=== PATIENT | female | born 1960 | race Caucasian/White ===

== ENCOUNTER 2016-12-16 07:15 | Day surgery (SDC) | payer BC ==
[2016-12-16] MEDS ORDERED: Dextrose 5%-Lactated Ringers 1,000 ML IV SCH (07:45)
[2016-12-16] MEDS ORDERED: ceFAZolin 2 GM in Sodium Chloride 0.9% 50 ML IV ONE (08:15)
[2016-12-16] MEDS ORDERED: ceFAZolin 2 GM in Sodium Chloride 0.9% 100 ML IV ONE (08:15)
[2016-12-16] MEDS ORDERED: Bupivacaine 0.5%/EPINEPHrine 1:200,000 50 ML MDV ONE (10:30)
[2016-12-16] MEDS ORDERED: Rocuronium 50 MG/5 ML Vial ONE (10:49)
[2016-12-16] MEDS ORDERED: Ondansetron 4 MG/2 ML SDV ONE (10:49)
[2016-12-16] MEDS ORDERED: Neostigmine Methylsulfate 1 MG/ML 5 ML Syringe ONE (10:49)
[2016-12-16] MEDS ORDERED: Succinylcholine/Normal Saline 200 MG/10 ML Syringe ONE (10:49)
[2016-12-16] MEDS ORDERED: Propofol 200 MG/20 ML SDV ONE (10:49)
[2016-12-16] MEDS ORDERED: fentaNYL 250 MCG/5 ML SDV ONE ×2 (10:49→12:41)
[2016-12-16] MEDS ORDERED: Dexamethasone 4 MG/ML SDV ONE (10:49)
[2016-12-16] MEDS ORDERED: Lidocaine 1% 2 ML ONE (10:50)
[2016-12-16] MEDS ORDERED: Midazolam 1 MG/ML 2 ML SDV ONE (12:02)
[2016-12-16 14:48] VITALS: BP 131/61
--- NOTE | 2016-12-21 13:32 | OR ---
DATE OF PROCEDURE: 12/16/2016 PREOPERATIVE DIAGNOSIS: Metastatic papillary thyroid carcinoma to right cervical lymph node. POSTOPERATIVE DIAGNOSIS: Metastatic papillary thyroid carcinoma to right cervical lymph node. OPERATIVE PROCEDURE: Limited right cervical lymph node dissection (14102). ANESTHESIA: General. FILER AND SANDER: ANNI Barton student. INDICATION FOR PROCEDURE: This is a 56-year-old female now 7 to 8 years status post a total thyroidectomy for what at that time was a 4-cm papillary carcinoma. The patient received adjuvant I-131 treatment postoperatively. Recently, she was noted clinically to have a slightly enlarged node in the central area of the right neck and a fine-needle aspiration of that was consistent with metastatic papillary carcinoma. A PET scan was obtained, which showed that to be the only focus throughout the body and that clinically is consistent with the neck, otherwise, being free of any disease as well. The situation was discussed with radiation oncologist, Nile Hood MD, in [place] who had treated the patient with I-131 previously. The option of proceeding with a full radical neck dissection versus a limited excision of the single enlarged node, perhaps one or two nodes that might be nearby in that area followed by I-131 treatment for what might otherwise be some minimal microscopic disease were discussed, this was also reviewed with the patient. At this point, the plan will be to proceed with a very limited lymph node dissection, removing the area of concern and the adjacent adherent nodes. This would allow a subsequent full radical neck dissection should that become necessary subsequently and we plan to proceed with I-131 treatment post surgery. Potential risks of the procedure including bleeding, infection, injury to the nerves in the area, possible recurrence or persistence of the tumor postoperatively along with remote possibility of cardiopulmonary, septic, or hemorrhagic complications leading to were discussed, and the patient wishes to proceed. DETAILS OF PROCEDURE: The patient was taken to the operating room. After general endotracheal anesthesia was induced, the neck was turned slightly toward the left, and the right upper chest and neck areas were prepped and draped. A linear incision over the palpable node that had been previously aspirated for cytology was made and carried down through the skin and subcutaneous tissue, platysmal layers and subsequent fascial layers of neck came onto that node. There was noted to have a small hemorrhage with the recent fine needle aspiration. This was reduced using fine-needle aspiration. That node along with two more or less adherent nodes were excised with care taken to avoid injury to the nerves that were running into that area. The specimen was then delivered from the field. Frozen section confirmed an area of metastatic papillary carcinoma. The node removed was consistent with what was being seen radiologically preoperatively as well. Palpation revealed no additional areas of lymphadenopathy or suspicious findings. The incision was then closed with layers of 3-0 and 4-0 Vicryl stitch deep and Steri-Strips applied after the skin was closed with a 5-0 Vicryl subcuticular stitch. The patient was taken to the recovery room in satisfactory condition. There were no evident complications. Ranjit Wilkins MD /[id number]
== END 2016-12-16 15:54 | disposition home or self-care (01) ==
LOC: JP.SDS 07:15
PROVIDERS: ATTEND Surgery
PROC: 07B20ZX Excision of Left Neck Lymphatic, Open Approach, Diagnostic (ICD-10-PCS; principal; 2016-12-16)
PROC: 07913ZX Drainage of Right Neck Lymphatic, Percutaneous Approach, Diagnostic (ICD-10-PCS; 2016-12-16)
DX: C77.0 Secondary and unspecified malignant neoplasm of lymph nodes of head, face and neck (principal); C73 Malignant neoplasm of thyroid gland; E89.0 Postprocedural hypothyroidism
CPT/HCPCS: 10021; 36415; 38510; 80053; 83036; 83735; 84100; 85027; J0690; J1100; J2250; J2405; J2704; J3010; J7042; J7050; 88307; 88331; 88333; 88334

== ENCOUNTER 2018-07-17 15:30 | Emergency (ER) | payer BC, OTHER ==
[2018-07-17 15:53] VITALS: BP 157/95
--- NOTE | 2018-07-17 16:08 | EDM.PDOC ---
ED HPI GENERAL MEDICAL PROBLEM - General Chief Complaint: Upper Extremity Injury/Pain Stated Complaint: FELL HURT WRIST Time Seen by Provider: 07/17/18 16:00 Source of Information: Reports: Patient, RN History Limitations: Reports: No Limitations (58 yo female tripped on the carpet here at work just before arrival and injured her ) - History of Present Illness INITIAL COMMENTS - FREE TEXT/NARRATIVE: 58 yo female tripped on the carpet at work just before arrival and injured her L wrist. Has some swelling. Denies injury to other areas. 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: Reports: Other (see below) (none) Left Wrist Pain Score (Numeric/FACES): 5 - Related Data Allergies Allergy/AdvReac Type Severity Reaction Status Date / Time morphine Allergy Confusion Verified 07/17/18 15:52 Home Meds: Home Meds Levothyroxine Sodium [Synthroid] 150 mcg PO DAILY 11/15/16 [History] Lisinopril 40 mg PO DAILY 11/15/16 [History] Magnesium Oxide 500 mg PO DAILY 11/15/16 [History] amLODIPine Besylate [Amlodipine Besylate] 5 mg PO DAILY 11/15/16 [History] metFORMIN HCl [Metformin HCl] 500 mg PO BID 11/15/16 [History] Bacillus Coagulans [Probiotic] 1 each PO DAILY 11/16/16 [History] Past Medical History HEENT History: Reports: Impaired Vision Other HEENT History: ringing in right ear Cardiovascular History: Reports: Hypertension Respiratory History: Reports: Bronchitis, Recurrent, Sleep Apnea Gastrointestinal History: Reports: GERD Genitourinary History: Reports: None 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: Fibroids, Musculoskeletal History: Reports: Fracture, Osteoarthritis Endocrine/Metabolic History: Reports: Diabetes, Type II, Hypothyroidism, Obesity /BMI 30+ Oncologic (Cancer) History: Reports: Thyroid - Infectious Disease History Infectious Disease History: Reports: Chicken Pox - Past Surgical History GI Surgical History: Reports: Cholecystectomy Female Surgical History: Reports: Section, Hysterectomy Endocrine Surgical History: Reports: Thyroidectomy Social & Family History - Tobacco Use Smoking Status *Q: Never Smoker - Caffeine Use Caffeine Use: Reports: None - Recreational Drug Use Recreational Drug Use: No Review of Systems - Review of Systems Review Of Systems: See Below Constitutional: Reports: No Symptoms Ears: Reports: No Symptoms Nose: Reports: No Symptoms Mouth/Throat: Reports: No Symptoms Respiratory: Reports: No Symptoms Cardiovascular: Reports: No Symptoms Musculoskeletal: Reports: Joint Pain (L wrist), Joint Swelling (L wrist) Skin: Reports: No Symptoms Neurological: Reports: No Symptoms ED EXAM, GENERAL - Physical Exam Exam: See Below Exam Limited By: No Limitations General Appearance: Alert, WD/WN, No Apparent Distress Extremities: Joint Swelling (radial side of L wrist is slightly swollen. ), Limited Range of Motion (L wrist). No: Normal Range of Motion, Non-Tender, No Pedal Edema, Arm Pain (no arm or shoulder pain. ), Increased Warmth Neurological: Alert, Oriented, CN II-XII Intact, Normal Cognition, No Motor/ Sensory Deficits Psychiatric: Normal Affect, Normal Mood Skin Exam: Warm, Dry, Intact, Normal Color, No Rash Course - Vital Signs Text/Narrative:: sugar tong splint applied to L arm. Last Recorded V/S: Last Vital Signs Temp 37.0 C 07/17/18 15:53 Pulse 118 H 07/17/18 15:53 Resp 18 07/17/18 15:53 BP 157/95 H 07/17/18 15:53 Pulse Ox 96 07/17/18 15:53 - Orders/Labs/Meds Orders: Active Orders 24 hr Category Date Time Status Wrist Comp Min 3V Lt [CR] Stat Exams 07/17/18 16:02 Ordered - Radiology Interpretation Free Text/Narrative:: L wrist X-ray-? slightly impacted distal radius. Departure - Departure Time of Disposition: 16:33 Disposition: Home, Self-Care 01 Condition: Fair Clinical Impression: Distal radius fracture, left Qualifiers: Encounter type: initial encounter Fracture type: closed Fracture morphology: unspecified fracture morphology Qualified Code(s): S52.502A - Unspecified fracture of the lower end of left radius, initial encounter for closed fracture - Discharge Information *PRESCRIPTION DRUG MONITORING PROGRAM REVIEWED*: No *COPY OF PRESCRIPTION DRUG MONITORING REPORT IN PATIENT SHANE: No Referrals: Maddy Gonsalez PA-C [Primary Care Provider] - Forms: ED Department Discharge Additional Instructions: Wear splint at all times + sling. Acetaminophen or ibuprofen as needed for pain relief. Recheck with orthopedics within the week. - My Orders Last 24 Hours: My Active Orders 07/17/18 16:02 Wrist Comp Min 3V Lt [CR] Stat - Assessment/Plan Last 24 Hours: My Active Orders 07/17/18 16:02 Wrist Comp Min 3V Lt [CR] Stat
--- NOTE | 2018-07-18 08:39 | CR ---
Wrist Comp Min 3V Lt CLINICAL HISTORY: Fall FINDINGS: There is a nondisplaced impaction fracture the distal radius. There are some mild osteoarthritic changes in the carpal junctions. Impression: Nondisplaced impaction fracture distal radius Osteoarthritic changes
== END 2018-07-17 17:01 | disposition home or self-care (01) ==
LOC: JP.ED 15:30
DX: S52.502A Unspecified fracture of the lower end of left radius, initial encounter for closed fracture (principal); I10 Essential (primary) hypertension; Z88.5 Allergy status to narcotic agent; W01.0XXA Fall on same level from slipping, tripping and stumbling without subsequent striking against object, initial encounter
CPT/HCPCS: 29125; 73110-26-LT; 73110-LT; 99284-25

== ENCOUNTER 2022-05-16 11:51 | Inpatient (IN) | payer BC ==
[2022-05-16] MEDS ORDERED: Ketorolac 30 MG/ML SDV IVPUSH ONE (11:58)
[2022-05-16] MEDS ORDERED: HYDROmorphone 0.5 MG/0.5 ML Syringe IVPUSH ONE (11:58)
[2022-05-16] MEDS ORDERED: Sodium Chloride 0.9% 10 ML Syringe FLUSH PRN (11:58)
[2022-05-16] MEDS: Dextrose 5%-0.9% NaCl 1,000 ML IV SCH (12:57)
[2022-05-16 13:04] LABS: ESTIMATED GFR 84 mL/min (>60)
[2022-05-16 14:12] LABS: CORONAVIRUS COVID-19 NAA NEGATIVE (NEGATIVE)
[2022-05-16] MEDS ORDERED: Ondansetron 4 MG Tab.DIS PO PRN (15:30)
[2022-05-16] MEDS ORDERED: Melatonin 3 MG Tab PO PRN (15:30)
[2022-05-16] MEDS ORDERED: Magnesium Hydroxide 400 MG/5 ML Susp 30 ML Cup PO PRN (15:30)
[2022-05-16] MEDS ORDERED: Ondansetron 4 MG/2 ML SDV IV PRN (15:30)
[2022-05-16] MEDS ORDERED: HYDROmorphone 0.5 MG/0.5 ML Syringe IVPUSH PRN (15:39)
[2022-05-16] MEDS ORDERED: Bupivacaine 0.5%/EPINEPHrine 1:200,000 50 ML MDV ONE (15:53)
[2022-05-16] MEDS ORDERED: fentaNYL 250 MCG/5 ML SDV ONE (16:50)
[2022-05-16] MEDS ORDERED: Dexamethasone 4 MG/ML SDV ONE (16:51)
[2022-05-16] MEDS ORDERED: Ondansetron 4 MG/2 ML SDV ONE (16:51)
[2022-05-16] MEDS ORDERED: Rocuronium 50 MG/5 ML Vial ONE (16:51)
[2022-05-16] MEDS ORDERED: Neostigmine Methylsulfate 1 MG/ML 5 ML Syringe ONE (16:51)
[2022-05-16] MEDS ORDERED: Glycopyrrolate 0.2 MG/ML 5 ML MDV ONE (16:51)
[2022-05-16] MEDS ORDERED: Propofol 200 MG/20 ML SDV ONE (16:51)
[2022-05-16] MEDS ORDERED: Succinylcholine 200 MG/10 ML MDV ONE (17:11)
[2022-05-16] MEDS ORDERED: ceFAZolin 2 GM in Premix Bag 1 BAG IV ONE (17:34)
[2022-05-16] MEDS ORDERED: Sodium Chloride 0.9% 10 ML ONE (18:11)
[2022-05-16] MEDS ORDERED: cefOXitin 2 GM Vial ONE (18:11)
[2022-05-16] MEDS: Acetaminophen 325 MG Tab PO PRN (20:17)
[2022-05-16] MEDS: Metoprolol Tartrate 25 MG Tab PO SCH (21:19)
[2022-05-16] MEDS: traMADol 50 MG Tab PO PRN (21:23)
[2022-05-16] MEDS: Aspirin 325 MG Tab.EC PO SCH (21:23)
[2022-05-16] MEDS: Docusate Sodium 100 MG Cap PO SCH (21:23)
[2022-05-17] MEDS: oxyCODONE 5 MG Tab PO PRN ×3 (01:04→22:50)
[2022-05-17] MEDS: traMADol 50 MG Tab PO PRN (04:05)
[2022-05-17] MEDS: Dextrose 5%-0.9% NaCl 1,000 ML IV SCH (05:37)
[2022-05-17] MEDS ORDERED: metFORMIN 500 MG Tab PO SCH (07:30)
[2022-05-17] MEDS: amLODIPine 5 MG Tab PO SCH (08:07)
[2022-05-17] MEDS: Acetaminophen 325 MG Tab PO PRN (08:07)
[2022-05-17] MEDS: Docusate Sodium 100 MG Cap PO SCH ×2 (08:08→20:36)
[2022-05-17] MEDS: Lisinopril 20 MG Tab PO SCH (08:08)
[2022-05-17] MEDS: Aspirin 325 MG Tab.EC PO SCH ×2 (08:08→20:36)
[2022-05-17] MEDS: Metoprolol Tartrate 25 MG Tab PO SCH ×2 (08:08→20:36)
[2022-05-17] MEDS ORDERED: Non-Formulary Medication 1 Each (Levothyroxine Sodium [Synthroid] 150 MCG Tablet) PO SCH (09:00)
[2022-05-17] MEDS ORDERED: Ketorolac 30 MG/ML SDV IVPUSH PRN (09:42)
[2022-05-17] MEDS: metFORMIN 500 MG Tab PO SCH (17:06)
[2022-05-18] MEDS: oxyCODONE 5 MG Tab PO PRN (06:22)
[2022-05-18] MEDS: Metoprolol Tartrate 25 MG Tab PO SCH ×2 (08:06→21:25)
[2022-05-18] MEDS: Aspirin 325 MG Tab.EC PO SCH ×2 (08:06→21:25)
[2022-05-18] MEDS: Docusate Sodium 100 MG Cap PO SCH ×2 (08:06→21:25)
[2022-05-18] MEDS: metFORMIN 500 MG Tab PO SCH ×2 (08:06→17:34)
[2022-05-18] MEDS: amLODIPine 5 MG Tab PO SCH (08:07)
[2022-05-18] MEDS: Lisinopril 20 MG Tab PO SCH (08:07)
[2022-05-19] MEDS: oxyCODONE 5 MG Tab PO PRN (01:04)
[2022-05-19] MEDS: Metoprolol Tartrate 25 MG Tab PO SCH (08:11)
[2022-05-19] MEDS: Lisinopril 20 MG Tab PO SCH (08:11)
[2022-05-19] MEDS: metFORMIN 500 MG Tab PO SCH (08:11)
[2022-05-19] MEDS: Aspirin 325 MG Tab.EC PO SCH (08:12)
[2022-05-19] MEDS: amLODIPine 5 MG Tab PO SCH (08:12)
[2022-05-19] MEDS: Docusate Sodium 100 MG Cap PO SCH (08:12)
[2022-05-19 10:23] VITALS: BP 121/60; PULSE 95
== END 2022-05-19 14:23 | disposition home or self-care (01) | DRG 308 ==
LOC: JP.ED 11:51 → JP.MS 14:25
PROVIDERS: ADMIT Internal Medicine; ATTEND Internal Medicine
PROC: 0SH934Z Insertion of Internal Fixation Device into Right Hip Joint, Percutaneous Approach (ICD-10-PCS; principal; 2022-05-16)
DX: S72.001A Fracture of unspecified part of neck of right femur, initial encounter for closed fracture (principal); S52.501A Unspecified fracture of the lower end of right radius, initial encounter for closed fracture; E11.9 Type 2 diabetes mellitus without complications; I10 Essential (primary) hypertension; E03.9 Hypothyroidism, unspecified; W01.0XXA Fall on same level from slipping, tripping and stumbling without subsequent striking against object, initial encounter; H54.7 Unspecified visual loss; G47.30 Sleep apnea, unspecified; K21.9 Gastro-esophageal reflux disease without esophagitis; M19.90 Unspecified osteoarthritis, unspecified site; E66.9 Obesity, unspecified; Z20.822 Contact with and (suspected) exposure to COVID-19; Z85.850 Personal history of malignant neoplasm of thyroid; Z90.49 Acquired absence of other specified parts of digestive tract; Z88.5 Allergy status to narcotic agent; Z79.899 Other long term (current) drug therapy; Z79.890 Hormone replacement therapy; Y92.002 Bathroom of unspecified non-institutional (private) residence as the place of occurrence of the external cause; Z90.710 Acquired absence of both cervix and uterus; Z98.890 Other specified postprocedural states; Z79.84 Long term (current) use of oral hypoglycemic drugs; Z68.37 Body mass index [BMI] 37.0-37.9, adult
CPT/HCPCS: 0241U; 36415; 51702; 73110-RT; 73502-RT; 76000; 80048; 85025; 85027; 85610; 85730; 93005; 96361; 96374; 96375; 97110-GP; 97116-GP; 97162-GP; 97165-GO; 97530-GP; 97535-GO; 97535-GP; 99285-25; A9270-GY; C1713; C1769; J0330; J0690; J0694; J1100; J1170; J1885; J2405; J2704; J2710; J3010; J3490